=== PATIENT | female | born 1990 | race Caucasian/White ===

== ENCOUNTER 2023-07-24 09:40 | Emergency (ER) | payer BC | END 2023-07-24 10:55 | disposition home or self-care (01) | LOC: KA.ED 09:40 | DX: J02.0 Streptococcal pharyngitis (principal); H10.33 Unspecified acute conjunctivitis, bilateral; Z91.09 Other allergy status, other than to drugs and biological substances | CPT/HCPCS: 87651-QW; 99283 ==